=== PATIENT | female | born 1985 | race African-American/Black ===

== ENCOUNTER 2017-09-05 08:05 | Emergency (ER) | payer MEDICAID, OTHER ==
[~2017-09-05] VITALS: Ht 160 cm; Wt 64.0 kg
[2017-09-05] MEDS ORDERED: DEXAMETHASONE 10 MG/ML VIAL IM ONE (10:15)
[2017-09-05 10:48] VITALS: BP 115/70
== END 2017-09-05 10:50 | disposition home or self-care (01) ==
LOC: ER 08:43
DX: L50.9 Urticaria, unspecified (principal); F12.10 Cannabis abuse, uncomplicated
CPT/HCPCS: 96372; 99283; J1100

== ENCOUNTER 2018-03-20 03:23 | Emergency (ER) | payer MEDICAID ==
[~2018-03-20] VITALS: Ht 167.6 cm; Wt 68.0 kg
[2018-03-20] MEDS ORDERED: HYDROCODONE/ACETAMINOPHEN 5/325MG TABLET PO ONE (04:45)
[2018-03-20 07:47] VITALS: BP 108/60
== END 2018-03-20 08:01 | disposition home or self-care (01) ==
LOC: ER 03:23
DX: S30.0XXA Contusion of lower back and pelvis, initial encounter (principal); S20.212A Contusion of left front wall of thorax, initial encounter; F17.200 Nicotine dependence, unspecified, uncomplicated; F12.10 Cannabis abuse, uncomplicated; V43.52XA Car driver injured in collision with other type car in traffic accident, initial encounter; Y93.89 Activity, other specified; Y92.488 Other paved roadways as the place of occurrence of the external cause
CPT/HCPCS: 71045; 72100; 99284

== ENCOUNTER 2018-04-03 09:17 | Emergency (ER) | payer MEDICAID ==
[~2018-04-03] VITALS: Ht 177.8 cm; Wt 63.0 kg
[2018-04-03] MEDS ORDERED: IBUPROFEN 800MG TABLET PO ONE (10:45)
[2018-04-03] MEDS ORDERED: ONDANSETRON HCL 4MG TABLET PO ONE (10:45)
[2018-04-03 11:30] LABS: CLARITY URINE CLOUDY (CLEAR); COLOR URINE YELLOW (YELLOW); KETONES URINE NEGATIVE (NEGATIVE); LEUKOCYTE ESTERASE URINE NEGATIVE (NEGATIVE); NITRITE URINE NEGATIVE (NEGATIVE); OCCULT BLOOD URINE NEGATIVE (NEGATIVE); PROTEIN URINE NEGATIVE (NEGATIVE); SPECIFIC GRAVITY URINE 1.016 (1.005-1.030); UROBILINOGEN URINE 0.2 E.U./dL (0.2-1.0)
[2018-04-03 12:12] VITALS: BP 106/47
== END 2018-04-03 12:25 | disposition home or self-care (01) ==
LOC: ER 10:31
DX: R51 Headache (principal); R07.9 Chest pain, unspecified
CPT/HCPCS: 70450; 81003; 81025; 93005; 99285; Q0162

== ENCOUNTER 2018-05-02 06:53 | Emergency (ER) | payer MEDICAID ==
[~2018-05-02] VITALS: Ht 160 cm; Wt 62.0 kg
[2018-05-02 06:58] VITALS: BP 121/51
[2018-05-02] MEDS ORDERED: METHYLPREDNISOLONE SOD SUCC 125 MG/2 ML VIAL IM ONE (08:15)
[2018-05-02] MEDS ORDERED: FAMOTIDINE 20MG TABLET PO ONE (08:15)
== END 2018-05-02 09:08 | disposition home or self-care (01) ==
LOC: ER 06:53
DX: T78.40XA Allergy, unspecified, initial encounter (principal); F12.10 Cannabis abuse, uncomplicated; Z91.018 Allergy to other foods; X58.XXXA Exposure to other specified factors, initial encounter
CPT/HCPCS: 96372; 99283; J2930

== ENCOUNTER 2019-05-03 13:10 | Emergency (ER) | payer SELFPAY ==
[~2019-05-03] VITALS: Ht 160 cm; Wt 61.0 kg
[2019-05-03] MEDS ORDERED: KETOROLAC 60MG/2ML VIAL IM ONE (17:45)
[2019-05-03] MEDS ORDERED: MORPHINE SULFATE 10 MG/ML CPJ IM ONE (17:45)
[2019-05-03] MEDS ORDERED: METHOCARBAMOL 750MG TABLET PO SCH (17:45)
[2019-05-03 18:14] VITALS: BP 118/60
== END 2019-05-03 18:16 | disposition home or self-care (01) ==
LOC: ER 13:17
DX: S39.012A Strain of muscle, fascia and tendon of lower back, initial encounter (principal); F17.210 Nicotine dependence, cigarettes, uncomplicated; F12.10 Cannabis abuse, uncomplicated; V43.62XA Car passenger injured in collision with other type car in traffic accident, initial encounter; Y93.89 Activity, other specified; Y92.488 Other paved roadways as the place of occurrence of the external cause
CPT/HCPCS: 96372; 99283; J1885; J2270

== ENCOUNTER 2019-08-10 06:37 | Inpatient (IN) | payer MEDICAID, OTHER ==
[~2019-08-10] VITALS: Ht 162.6 cm; Wt 67.6 kg
[2019-08-10] MEDS ORDERED: ACETAMINOPHEN 325MG TABLET PO STA (06:55)
[2019-08-10] MEDS ORDERED: ONDANSETRON HCL 4MG/2ML INJ IV STA ×3 (06:55→12:15)
[2019-08-10] MEDS ORDERED: MAGNESIUM/ALUMINUM HYDROXIDE/SIMETHICONE 30ML UDC PO STA (06:55)
[2019-08-10] MEDS ORDERED: SODIUM CHLORIDE 0.9% 1,000 ML IV ONE ×3 (06:55→10:30)
[2019-08-10 07:40] LABS: HEMATOCRIT. 27.5 % (36.0-48.0); HEMOGLOBIN. 9.2 g/dL (12.0-16.0); MEAN CORPUSCULAR HEMOGLOBIN 31.1 pg (28.0-32.0); MEAN CORPUSCULAR VOLUME 93.2 fL (81.0-99.0); MEAN PLATELET VOLUME 9.2 fl (7.4-10.4); PLATELET 278 x1000/uL (130-400); RED BLOOD CELL COUNT 2.95 mill/uL (4.2-5.4); RED CELL DISTRIBUTION WIDTH 12.8 % (11.6-14.6)
[2019-08-10 07:44] LABS: CHLORIDE 104 mEq/L (98-107)
[2019-08-10 07:48] LABS: ETHANOL BLOOD < 10 mg/dL
[2019-08-10 08:08] LABS: B-HCG QUANTITATIVE 17601 mIU/mL (<3)
[2019-08-10 08:39] LABS: CLARITY URINE CLOUDY (CLEAR); COLOR URINE DARK YELLOW (YELLOW); KETONES URINE NEGATIVE (NEGATIVE); LEUKOCYTE ESTERASE URINE NEGATIVE (NEGATIVE); NITRITE URINE NEGATIVE (NEGATIVE); OCCULT BLOOD URINE NEGATIVE (NEGATIVE); PROTEIN URINE 2+ (NEGATIVE); UROBILINOGEN URINE 0.2 E.U./dL (0.2-1.0)
[2019-08-10] MEDS ORDERED: POTASSIUM CHLORIDE 20MEQ TABLET SR PO ONE (09:00)
[2019-08-10 09:12] LABS: METHADONE URINE SCREEN NEGATIVE (NEGATIVE); OPIATES URINE SCREEN NEGATIVE (NEGATIVE); PHENCYCLIDINE URINE SCREEN NEGATIVE (NEGATIVE)
[2019-08-10 09:13] LABS: *AMPHETAMINES SCREEN URINE NEGATIVE (NEGATIVE); *BARBITURATES SCREEN URINE NEGATIVE (NEGATIVE); *BENZODIAZEPINES SCREEN URINE NEGATIVE (NEGATIVE); *COCAINE SCREEN URINE NEGATIVE (NEGATIVE)
[2019-08-10 09:19] LABS: CANNABINOID URINE SCREEN PRESUMTIVE POSITIVE (NEGATIVE)
[2019-08-10 09:24] LABS: PLATELET ESTIMATE NORMAL
[2019-08-10] MEDS ORDERED: MORPHINE SULFATE 4 MG/ML CPJ (NOT FOR IM USE) IV STA ×2 (10:08→12:15)
[2019-08-10 12:15] LABS: INR 1.1; PROTHROMBIN TIME 11.6 sec (9.6-11.0)
[2019-08-10] MEDS ORDERED: MORPHINE SULFATE 2 MG/ML CPJ (NOT FOR IM USE) IV NR (16:15)
[2019-08-10] MEDS ORDERED: ROCURONIUM BROMIDE 10MG/ML VIAL 5ML IV ONE (22:32)
[2019-08-10] MEDS ORDERED: ONDANSETRON HCL 4MG/2ML INJ ONE (22:32)
[2019-08-10] MEDS ORDERED: METOCLOPRAMIDE HCL 10MG/2ML VIAL ONE (22:32)
[2019-08-10] MEDS ORDERED: MIDAZOLAM HCL 2 MG/2 ML VIAL ONE (22:32)
[2019-08-10] MEDS ORDERED: LIDOCAINE HCL/PF 1% 10 MG/ML 5ML VIAL ONE (22:32)
[2019-08-10] MEDS ORDERED: FENTANYL CITRATE/PF 50MCG/ML 2ML VIAL ONE ×3 (22:32→23:36)
[2019-08-10] MEDS ORDERED: SUCCINYLCHOLINE CHLORIDE 200MG/10ML IV ONE (22:32)
[2019-08-10] MEDS ORDERED: PROPOFOL 200MG/20ML VIAL IV ONE (22:32)
[2019-08-10] MEDS ORDERED: ESMOLOL HCL 10MG/ML 10ML VIAL IV ONE (23:13)
[2019-08-10] MEDS ORDERED: CEFAZOLIN SODIUM 1000MG/VIAL ONE (23:24)
[2019-08-10] MEDS ORDERED: NEOSTIGMINE METHYLSULFATE 1MG/ML 10 ML VIAL ONE (23:40)
[2019-08-10] MEDS ORDERED: GLYCOPYRROLATE 0.2 MG/ML 2ML VIAL ONE (23:40)
[2019-08-11] VITALS (9 sets, daily range): BP systolic 94–113; BP diastolic 38–58
[2019-08-11] MEDS ORDERED: OXYCODONE HCL/ACETAMINOPHEN 5/325MG TABLET PO PRN
[2019-08-11] MEDS: HYDROMORPHONE HCL/PF 2MG/ML CPJ IV PRN ×2 (00:25→00:57)
[2019-08-11] MEDS ORDERED: ONDANSETRON HCL 4MG/2ML INJ IV PRN ×2 (00:30)
[2019-08-11] MEDS ORDERED: CEFAZOLIN 1000MG PREMIX 50 ML IV SCH (01:00)
[2019-08-11] MEDS: DEXT 5%/0.45% NACL KCL 20MEQ/L 1,000 ML IV SCH ×2 (01:43→12:00)
[2019-08-11] MEDS: MORPHINE SULFATE 2 MG/ML CPJ (NOT FOR IM USE) IV PRN ×5 (04:42→22:03)
[2019-08-11] MEDS: CEFAZOLIN 1000MG PREMIX 50 ML IV SCH ×3 (06:30→22:09)
[2019-08-11 07:05] LABS: MEAN CORPUSCULAR HEMOGLOBIN 30.9 pg (28.0-32.0); MEAN CORPUSCULAR VOLUME 93.5 fL (81.0-99.0); MEAN PLATELET VOLUME 9.1 fl (7.4-10.4); PLATELET 157 x1000/uL (130-400); RED BLOOD CELL COUNT 1.35 mill/uL (4.2-5.4); RED CELL DISTRIBUTION WIDTH 12.5 % (11.6-14.6)
[2019-08-11 07:19] LABS: CHLORIDE 116 mEq/L (98-107)
[2019-08-11 07:33] LABS: HEMATOCRIT. 12.6 % (36.0-48.0); HEMOGLOBIN. 4.2 g/dL (12.0-16.0)
[2019-08-11 09:16] LABS: PLATELET ESTIMATE NORMAL
[2019-08-11 14:27] LABS: HEMATOCRIT 12.2 % (36.0-48.0); HEMOGLOBIN 4.1 g/dL (12.0-16.0)
[2019-08-11] MEDS: ACETAMINOPHEN 650MG SUPP PR PRN (20:00)
[2019-08-12] VITALS (10 sets, daily range): BP systolic 93–116; BP diastolic 40–58
[2019-08-12] MEDS: ACETAMINOPHEN 650MG SUPP PR PRN (00:22)
[2019-08-12] MEDS: DEXT 5%/0.45% NACL KCL 20MEQ/L 1,000 ML IV SCH ×3 (01:10→21:00)
[2019-08-12] MEDS: MORPHINE SULFATE 2 MG/ML CPJ (NOT FOR IM USE) IV PRN ×2 (06:05→15:28)
[2019-08-12] MEDS: CEFAZOLIN 1000MG PREMIX 50 ML IV SCH ×3 (09:37→22:59)
[2019-08-12 11:56] LABS: BASOPHILS % 0.2 % (0.0-2.0); EOSINOPHILS % 0.3 % (0.0-5.0); HEMATOCRIT 21.5 % (36.0-48.0); HEMATOCRIT. 21.5 % (36.0-48.0); HEMOGLOBIN 7.3 g/dL (12.0-16.0); HEMOGLOBIN. 7.4 g/dL (12.0-16.0); LYMPHOCYTES % 10.5 % (20.0-50.0); MEAN CORPUSCULAR HEMOGLOBIN 30.5 pg (28.0-32.0); MEAN CORPUSCULAR VOLUME 88.6 fL (81.0-99.0); MEAN PLATELET VOLUME 8.4 fl (7.4-10.4); MONOCYTES % 10.9 % (2.0-8.0); NEUTROPHILS % 78.1 % (40.0-76.0); PLATELET 148 x1000/uL (130-400); RED BLOOD CELL COUNT 2.43 mill/uL (4.2-5.4); RED CELL DISTRIBUTION WIDTH 14.1 % (11.6-14.6)
[2019-08-12] MEDS: FERROUS SULFATE 325MG TABLET PO SCH (21:28)
[2019-08-13] VITALS: BP 102/54
[2019-08-13 04:00] VITALS: BP 113/52
[2019-08-13] MEDS: MORPHINE SULFATE 2 MG/ML CPJ (NOT FOR IM USE) IV PRN ×3 (06:02→21:13)
[2019-08-13] MEDS: CEFAZOLIN 1000MG PREMIX 50 ML IV SCH (06:02)
[2019-08-13 08:00] VITALS: BP 108/41
[2019-08-13] MEDS: FERROUS SULFATE 325MG TABLET PO SCH ×3 (08:24→18:23)
[2019-08-13 08:51] LABS: BASOPHILS % 0.3 % (0.0-2.0); HEMATOCRIT. 22.1 % (36.0-48.0); HEMOGLOBIN. 7.9 g/dL (12.0-16.0); LYMPHOCYTES % 11.7 % (20.0-50.0); MEAN CORPUSCULAR HEMOGLOBIN 32.2 pg (28.0-32.0); MEAN CORPUSCULAR VOLUME 89.4 fL (81.0-99.0); MEAN PLATELET VOLUME 8.2 fl (7.4-10.4); MONOCYTES % 10.8 % (2.0-8.0); NEUTROPHILS % 76.2 % (40.0-76.0); PLATELET 175 x1000/uL (130-400); RED BLOOD CELL COUNT 2.47 mill/uL (4.2-5.4); RED CELL DISTRIBUTION WIDTH 13.8 % (11.6-14.6)
[2019-08-13 12:00] VITALS: BP 104/42
[2019-08-13] MEDS: CEPHALEXIN 250MG CAPSULE PO SCH ×3 (13:53→23:20)
[2019-08-13] MEDS: DEXT 5%/0.45% NACL KCL 20MEQ/L 1,000 ML IV SCH ×2 (15:52→15:53)
[2019-08-13 16:00] VITALS: BP 106/45
[2019-08-13 20:00] VITALS: BP 119/56
[2019-08-14] MEDS: MORPHINE SULFATE 2 MG/ML CPJ (NOT FOR IM USE) IV PRN ×2 (01:26→09:39)
[2019-08-14] MEDS: DEXT 5%/0.45% NACL KCL 20MEQ/L 1,000 ML IV SCH ×2 (03:37→14:22)
[2019-08-14] MEDS: CEPHALEXIN 250MG CAPSULE PO SCH ×2 (06:40→12:16)
[2019-08-14 08:00] VITALS: BP 108/46
[2019-08-14] MEDS: FERROUS SULFATE 325MG TABLET PO SCH ×2 (09:37→12:16)
[2019-08-14 12:00] VITALS: BP 107/53
[2019-08-14] MEDS ORDERED: FERR325T23 PO (14:16)
[2019-08-14] MEDS ORDERED: OXYC-523 PO (14:16)
[2019-08-14 15:54] VITALS: BP 107/53
[2019-08-14 17:04] LABS: BASOPHILS % 0.7 % (0.0-2.0); EOSINOPHILS % 3.2 % (0.0-5.0); HEMATOCRIT. 24.2 % (36.0-48.0); HEMOGLOBIN. 8.4 g/dL (12.0-16.0); LYMPHOCYTES % 16.3 % (20.0-50.0); MEAN CORPUSCULAR HEMOGLOBIN 31.4 pg (28.0-32.0); MEAN CORPUSCULAR VOLUME 90.4 fL (81.0-99.0); MEAN PLATELET VOLUME 8.2 fl (7.4-10.4); MONOCYTES % 11.3 % (2.0-8.0); NEUTROPHILS % 68.5 % (40.0-76.0); PLATELET 263 x1000/uL (130-400); RED BLOOD CELL COUNT 2.68 mill/uL (4.2-5.4); RED CELL DISTRIBUTION WIDTH 13.6 % (11.6-14.6)
== END 2019-08-14 17:05 | disposition home or self-care (01) | DRG 545 ==
LOC: ER 07:02 → EDBEDREQ 14:56 → EDBEDREQSVC 14:56 → EDBEDREQTM 14:56 → ENRESERV 23:15 → 6EST 08-11 00:12 → CMPBEDREQ 08-11 02:53
PROVIDERS: ADMIT Obstetrics & Gynecology; ATTEND Obstetrics & Gynecology
PROC: 10T20ZZ Resection of Products of Conception, Ectopic, Open Approach (ICD-10-PCS; principal; 2019-08-11)
PROC: 0UB60ZZ Excision of Left Fallopian Tube, Open Approach (ICD-10-PCS; 2019-08-11)
PROC: 30233N1 Transfusion of Nonautologous Red Blood Cells into Peripheral Vein, Percutaneous Approach (ICD-10-PCS; 2019-08-11)
DX: O00.102 Left tubal pregnancy without intrauterine pregnancy (principal); D64.9 Anemia, unspecified
CPT/HCPCS: 36415; 76801; 80048; 80053; 80305; 80320; 81003; 84702; 85014; 85018; 85025; 86850; 86900; 86920; 88305; 96361; 96374; 96375; 96376; 99285; J0330; J0690; J1170; J2250; J2270; J2405; J2704; J2710; J2765; J3010; J3490; J7030; J7040; P9016; G0480